=== PATIENT | female | born 1990 | race Caucasian/White ===

== ENCOUNTER 2017-04-06 14:35 | Inpatient (IN) | payer OTHER ==
[2017-04-06 15:39] VITALS: BMI 25.5
[2017-04-06 16:46] LABS: BASOPHIL 0.2 % (0-2.0); EOSINOPHIL 0.5 % (0-4.5); MCH 29.5 pg (25.7-33.7); MCHC 33.3 g/dl (32.0-36.0); MEAN CELL VOLUME 88.6 fl (80-96); NEUTROPHILS 69.4 % (42.8-82.8); PLATELET COUNT 208 K/MM3 (134-434); RDW 13.9 % (11.6-15.6); WHITE BLOOD COUNT 9.6 K/mm3 (4.0-10.0)
[2017-04-06 17:21] LABS: ANION GAP 7 (8-16); CALCIUM 8.8 mg/dL (8.5-10.1); CO2 26 mmol/L (21-32); CREATININE 0.6 mg/dL (0.55-1.02); GLUCOSE,RANDOM 86 mg/dL (74-106)
[2017-04-06 18:12] LABS: INR 0.87 (0.82-1.09); PROTHROMBIN TIME (PATIENT) 9.5 SEC (9.98-11.88)
[2017-04-06 18:15] LABS: ACTIVATED PTT 30.8 SECONDS (26.9-34.4)
--- NOTE | 2017-04-06 18:23 | HP ---
Past Medical History - Primary Care Physician PCP:: Aaron Alas - Admission Chief Complaint: 38.5 weeks, labor History of Present Illness: 27 yo f edc by sono 04/15/17 c/o contraction, vaginal spotting, , cx 3 cm , 80 vx -1 mi, fhr cat 1 , contraction q 3 min History Source: Patient Limitations to Obtaining History: No Limitations - Past Medical History ...: 1 ...LMP: 07/09/16 ... Weeks Gestation by Dates: 38.5 ...EDC by Dates: 04/15/17 ...EDC by Sono: 04/15/17 - Past Surgical History Hx Myomectomy: No Hx Transabdominal Cerclage: No - Smoking History Smoking history: Never smoked Have you smoked in the past 12 months: No - Alcohol/Substance Use Hx Alcohol Use: No - Social History Usual Living Arrangement: Yes: With Spouse History of Recent Travel: Yes Home Medications - Allergies Allergies/Adverse Reactions: Allergies Allergy/AdvReac Type Severity Reaction Status Date / Time No Known Allergies Allergy Verified 04/06/17 16:45 - Home Medications Home Medications: Ambulatory Orders Tablet 1 tab PO DAILY 04/06/17 Review of Systems - Review of Systems Constitutional: reports: No Symptoms Eyes: reports: No Symptoms HENT: reports: No Symptoms Neck: reports: No Symptoms Cardiovascular: reports: No Symptoms Respiratory: reports: No Symptoms Gastrointestinal: reports: No Symptoms Genitourinary: reports: No Symptoms Breasts: reports: No Symptoms Reported Musculoskeletal: reports: No Symptoms Integumentary: reports: No Symptoms Neurological: reports: No Symptoms Endocrine: reports: No Symptoms Hematology/Lymphatic: reports: No Symptoms Psychiatric: reports: No Symptoms Physical Exam - Maternity Vital Signs: Vital Signs Temperature 97.6 F 04/06/17 18:00 Pulse Rate 69 04/06/17 18:00 Respiratory Rate 20 04/06/17 18:00 Blood Pressure 115/66 04/06/17 18:00 O2 Sat by Pulse Oximetry (%) Constitutional: Yes: Well Nourished, No Distress, Calm Eyes: Yes: WNL, Conjunctiva Clear, EOM Intact HENT: Yes: WNL, Atraumatic, Normocephalic Neck: Yes: WNL, Supple, Trachea Midline Cardiovascular: Yes: WNL, Regular Rate and Rhythm Breast(s): Yes: WNL - Abdominal Exam/OB Fundal Height: 40 Number of Fetuses: Single Presentation: Vertex Contractions: Yes Regularity: Regular Intensity: Mod/Strong Monitor Mode: External Heart Rate Location: [facility] Category: I Accelerations: Uniform Decelerations: None - Vaginal Exam/OB Vaginal Bleediing: No Speculum Exam: No Dilatation (cm): 3 cm Effacement (%): 80 Amniotic Membrane Status: Intact Nitrazine Test: Negative Presentation: Vertex/Position Station: -1 - Physical Exam Musculoskeletal: Yes: WNL Extremities: Yes: WNL Edema: Yes Edema: LLE: Trace, RLE: Trace Deep Tendon Reflex Grade: Normal +2 Psychiatric: Yes: WNL - Labs Lab Results: CBC, BMP 04/06/17 16:00 04/06/17 16:00 Hemorrhage Risk Assessment - Risk Factors Medium Risk Factors: Yes: None High Risk Factors: Yes: None Risk Score: 0 Risk Level: Low Risk Problem List - Problems (1) 38 weeks gestation of Code(s): Z3A.38 - 38 WEEKS GESTATION OF (2) Labor established Code(s): QVH9521 - Assessment/Plan admit, fhm, ,
[2017-04-06] MEDS ORDERED: DEXTROSE 5%-LACTATED RINGERS 1,000 ML IV SCH (19:30)
[2017-04-06] MEDS ORDERED: PROMETHAZINE HCL 25 MG/1 ML VIAL IVPUSH ONE (21:12)
[2017-04-06] MEDS ORDERED: BUTORPHANOL TARTRATE 1 MG/ML VIAL IVPUSH PRN (21:12)
--- NOTE | 2017-04-06 21:12 | PN ---
Progress Note (short form) - Note Progress Note: cx 4 cm 80 vx 0 mi, fhr cat 1, contraction q 3 min irregular , arom clear Problem List - Problems (1) 38 weeks gestation of Code(s): Z3A.38 - 38 WEEKS GESTATION OF (2) Labor established Code(s): [id number] -
--- NOTE | 2017-04-06 22:52 | PN ---
Progress Note (short form) - Note Progress Note: 913 pm cx 4 cm 80 vx -1 arom, clear, fhr cat 1, contraction q 3 to 4 min , moderate Problem List - Problems (1) 38 weeks gestation of Code(s): Z3A.38 - 38 WEEKS GESTATION OF (2) Labor established Code(s): [id number] -
--- NOTE | 2017-04-06 23:16 | PN ---
Progress Note (short form) - Note Progress Note: cx 7 cm 100 vx 0 mr, fhr cat 1, declined pain meds Problem List - Problems (1) 38 weeks gestation of Code(s): Z3A.38 - 38 WEEKS GESTATION OF (2) Labor established Code(s): CIS0547 -
[2017-04-07] MEDS ORDERED: BENZOCAINE 28 GM HEMORRHOIDAL OINTMENT TP PRN (01:32)
[2017-04-07] MEDS ORDERED: WITCH HAZEL 50% (TUCKS) 40 PAD/JAR PAD TP PRN (01:32)
[2017-04-07] MEDS ORDERED: METHYLERGONOVINE MALEATE 0.2 MG/1 ML AMP IM PRN (01:32)
[2017-04-07] MEDS ORDERED: oxyCODONE HCL 5 MG TABLET PO PRN (01:32)
[2017-04-07] MEDS ORDERED: BISACODYL 10 MG SUPP.RECT RC PRN (01:32)
[2017-04-07] MEDS ORDERED: BENZOCAINE 20% 57 GM BOTTLE TP PRN (01:32)
[2017-04-07] MEDS ORDERED: D5W-LR W/ 20 UNITS OXYTOCIN 1,000 ML IV SCH (01:45)
[2017-04-07 01:49] LABS: ARTERIAL BLOOD GAS BASE EXCESS -5.6 meq/l (-2-2); ARTERIAL BLOOD GAS HCO3 22.6 meq/L (22-26); ARTERIAL BLOOD GAS PO2 20.1 mmHg (80-100)
[2017-04-07 01:53] LABS: VENOUS BLOOD GAS HCO3 21.6 meq/L (19-25)
[2017-04-07 01:56] LABS: VENOUS PH 7.28 (7.32-7.42)
[2017-04-07 01:57] LABS: PT. ON O2? NO
[2017-04-07 01:58] LABS: ARTERIAL BLOOD GAS pH 7.23 (7.35-7.45)
[2017-04-07] MEDS: IBUPROFEN 600 MG TABLET (FP) PO PRN ×3 (02:55→21:53)
[2017-04-07] MEDS: ACETAMINOPHEN 325 MG TABLET (FP) PO PRN ×2 (02:55→16:03)
[2017-04-07] MEDS: PRENATAL VITAMINS W/ FOLIC ACID TABLET (FP) PO SCH (09:42)
[2017-04-07] MEDS: FERROUS SO4 325 MG TABLET (FP) PO SCH ×2 (09:42→21:53)
[2017-04-07] MEDS ORDERED: DIPHTH,PERTUSS(ACELL),TET 0.5 ML DISP.SYRIN IM ONE (10:00)
[2017-04-08 07:42] LABS: BASOPHIL 0.4 % (0-2.0); MCH 30.4 pg (25.7-33.7); MCHC 34.4 g/dl (32.0-36.0); MEAN CELL VOLUME 88.4 fl (80-96); NEUTROPHILS 73.4 % (42.8-82.8); PLATELET COUNT 153 K/MM3 (134-434); RDW 14.2 % (11.6-15.6); WHITE BLOOD COUNT 9.6 K/mm3 (4.0-10.0)
--- NOTE | 2017-04-08 09:29 | DS ---
Physical Exam-FUR FEEDER Vital Signs: Vital Signs Temperature 98.4 F 04/07/17 21:00 Pulse Rate 79 04/07/17 21:00 Respiratory Rate 18 04/07/17 21:00 Blood Pressure 107/52 04/07/17 21:00 O2 Sat by Pulse Oximetry (%) 100 04/07/17 03:00 Constitutional: Yes: Well Nourished, No Distress, Calm Eyes: Yes: WNL, Conjunctiva Clear, EOM Intact HENT: Yes: WNL, Atraumatic, Normocephalic Neck: Yes: WNL, Supple, Trachea Midline Cardiovascular: Yes: WNL, Regular Rate and Rhythm Respiratory: Yes: WNL, Regular, CTA Bilaterally Gastrointestinal: Yes: WNL ...Rectal Exam: Yes: WNL Renal/: Yes: WNL ....Post : Yes: Uterus firm, Uterus non-tender, Slight lochia rubra Breast(s): Yes: WNL Musculoskeletal: Yes: WNL Extremities: Yes: WNL Edema: No Integumentary: Yes: WNL Neurological: Yes: WNL, Alert, Oriented ...Motor Strength: WNL Psychiatric: Yes: WNL, Alert, Oriented Labs: CBC, BMP 04/08/17 07:20 04/06/17 16:00 Delivery - Delivery Vaginal Delivery: Spontaneous (no complication) Type of Anesthesia: Local Episiotomy/Laceration: Periurethral Extnsion/lac, 1st degree EBL (cc): 300 Delivery, Single - Stages of Labor Date 1st Stage Initiatied: 04/06/17 Time 1st Stage Initiated: 14:50 Date 2nd Stage Initiated: 04/07/17 Time 2nd Stage Initiated: 00:15 Date of Delivery: 04/07/17 Time of Delivery: 01:15 Time Placenta Delivered: 01:25 Placenta: Yes: Spontaneous (no complication) - Condition of Registered Nurse Supervisor/Energy Efficiency Engineer Present: No Gender: Female Weight: 6 lb 2 oz Position: Left, OA Total Hours ROM (Hrs/Mins): 4h14m - 1 Minute Total Score: 9 5 Minutes Total Score: 9 - [place] Feeding Plan Initial Plan: Elected not to breastfeed exclusively throughout hospitalization Discharge Summary Reason For Visit: LABOR Current Active Problems 38 weeks gestation of (Acute) Labor established (Acute) Procedures: Principal: , Hospital Course: non complicated Condition: Good - Instructions Diet, Activity, Other Instructions: regular diet, follow up office 4 weeks Disposition: HOME - Home Medications Comprehensive Discharge Medication List: Ambulatory Orders Tablet 1 tab PO DAILY 04/06/17
[2017-04-08] MEDS: FERROUS SO4 325 MG TABLET (FP) PO SCH ×2 (10:13→22:02)
[2017-04-08] MEDS: PRENATAL VITAMINS W/ FOLIC ACID TABLET (FP) PO SCH (10:13)
[2017-04-08] MEDS: IBUPROFEN 600 MG TABLET (FP) PO PRN (16:53)
[2017-04-08] MEDS: ACETAMINOPHEN 325 MG TABLET (FP) PO PRN (16:54)
[2017-04-08] MEDS ORDERED: SENNOSIDES/DOCUSATE COMBO (SENNA PLUS) TABLET (UD) PO PRN (22:00)
[2017-04-09 07:38] VITALS: BP 110/62; PULSE 77; TEMP 99.1
[2017-04-09] MEDS: PRENATAL VITAMINS W/ FOLIC ACID TABLET (FP) PO SCH (09:34)
[2017-04-09] MEDS: FERROUS SO4 325 MG TABLET (FP) PO SCH (09:34)
--- NOTE | 2017-04-09 10:06 | PN ---
Progress Note (short form) - Note Progress Note: ppd 2 no c/o CBC, BMP 04/08/17 07:20 04/06/17 16:00 Last Vital Signs Temp Pulse Resp BP Pulse Ox 99.1 F 77 20 110/62 100 04/09/17 07:20 04/09/17 07:20 04/09/17 07:20 04/09/17 07:20 04/07/17 03:00 abdomen soft, , uterus firm, lochia mild plan d/c home rtc 4 weeks Problem List - Problems (1) 38 weeks gestation of Code(s): Z3A.38 - 38 WEEKS GESTATION OF (2) Labor established Code(s): HHI4460 -
== END 2017-04-09 13:05 | disposition home or self-care (01) | DRG 560 ==
LOC: JDEL 14:35 → JLDR 15:00 → J3W 04-07 03:45
PROVIDERS: ADMIT Obstetrics & Gynecology; ATTEND Obstetrics & Gynecology
PROC: 10E0XZZ Delivery of Products of Conception, External Approach (ICD-10-PCS; principal; 2017-04-07)
PROC: 0HQ9XZZ Repair Perineum Skin, External Approach (ICD-10-PCS; 2017-04-07)
PROC: 0W8NXZZ Division of Female Perineum, External Approach (ICD-10-PCS; 2017-04-07)
DX: O70.0 First degree perineal laceration during delivery (principal); Z3A.38 38 weeks gestation of pregnancy; Z37.0 Single live birth
CPT/HCPCS: 36415; 36600; 59409; 80048; 82803; 85025; 85610; 85730; 86593; 86762; 86850; 86900; 86901; 90715

== ENCOUNTER 2019-09-23 13:38 | Emergency (ER) | payer OTHER ==
[2019-09-23] MEDS ORDERED: IBUPROFEN 600 MG TABLET (FP) PO ONE ×2 (13:46→14:05)
--- NOTE | 2019-09-23 13:46 | PDOC ---
Rapid Medical Evaluation Medical Evaluation: Allergies Allergy/AdvReac Type Severity Reaction Status Date / Time No Known Allergies Allergy Verified 04/06/17 16:45 09/23/19 13:45 CC: right ankle pain s/p fall on stairs PE: TTp over lateral malleolus. No bony deformity or crepitus present. NVI Orders: Xray, Motrin Patient will proceed to ED for further evaluation. Discharge Disposition - Diagnosis Acute right ankle pain - Referrals - Patient Instructions - Post Discharge Activity
[2019-09-23 13:47] VITALS: BP 132/80; PULSE 100; TEMP 98; BMI 20.5
--- NOTE | 2019-09-23 14:12 | PDOC ---
History of Present Illness - General Chief Complaint: Injury Stated Complaint: RT. FOOT PAIN/ FALL Time Seen by Provider: 09/23/19 13:47 History Source: Patient - History of Present Illness Occurred: reports: this afternoon Pain Location: reports: lower extremity Method of Injury: Yes: fall Past History - Past Medical History Allergies/Adverse Reactions: Allergies Allergy/AdvReac Type Severity Reaction Status Date / Time No Known Allergies Allergy Verified 09/23/19 13:47 Home Medications: Ambulatory Orders Tablet 1 tab PO DAILY 04/06/17 Ibuprofen [Motrin -] 600 mg PO QID #28 tablet 04/08/17 Asthma: No Cancer: No Cardiac Disorders: No COPD: No Diabetes: No HTN: No Seizures: No Thyroid Disease: No - Psycho Social/Smoking Cessation Hx Smoking History: Never smoked Have you smoked in the past 12 months: No Hx Alcohol Use: No Drug/Substance Use Hx: No Hx Substance Use Treatment: No Review of Systems - Review of Systems Musculoskeletal: Yes: Joint Pain, Joint Swelling *Physical Exam - Vital Signs Last Vital Signs Temp Pulse Resp BP Pulse Ox 98 F 100 H 18 132/80 99 09/23/19 13:45 09/23/19 13:45 09/23/19 13:45 09/23/19 13:45 09/23/19 13:45 - Physical Exam General Appearance: Yes: Appropriately Dressed, Mild Distress HEENT: positive: Normal Voice Neck: positive: Supple Respiratory/Chest: negative: Respiratory Distress Extremity: positive: Normal Inspection, Swelling (minimal swelling w/ ttp) Integumentary: positive: Dry, Warm Neurologic: positive: Fully Oriented, Alert, Normal Mood/Affect Medical Decision Making - Medical Decision Making 09/23/19 14:11 29-year-old female with R ankle pain s/p fall down steps today while carrying her child. Denies any other injuries. Able to bear weight. see exam M/l ankle sprain XR neg MARY ANNE placed and crutches given Dc w/ supportive tx PMD f/u as needed Discharge - Discharge Information Problems reviewed: Yes Clinical Impression/Diagnosis: Ankle sprain Qualifiers: Encounter type: initial encounter Involved ligament of ankle: unspecified ligament Laterality: right Qualified Code(s): S93.401A - Sprain of unspecified ligament of right ankle, initial encounter Condition: Good Disposition: HOME - Follow up/Referral - Patient Discharge Instructions Patient Printed Discharge Instructions: DI for Ankle Sprain Additional Instructions: Radiografa negativa para fractura sreekanth de hielo y elevar en casa [place] motrin para el dolor segn sea necesario hasta que el esguince sane Siga con slade PMD si el dolor persiste despus de 2 semanas. Print Language: BANGLADESHI - Post Discharge Activity
== END 2019-09-23 14:33 | disposition home or self-care (01) ==
LOC: JERFT 13:38
DX: S93.401A Sprain of unspecified ligament of right ankle, initial encounter (principal); W10.8XXA Fall (on) (from) other stairs and steps, initial encounter; Y93.89 Activity, other specified; Y92.038 Other place in apartment as the place of occurrence of the external cause; Y99.8 Other external cause status
CPT/HCPCS: 73610-TC-RT-FY; 73630-TC-RT-FY; 99282-25

== ENCOUNTER 2022-03-10 07:32 | Inpatient (IN) | payer OTHER ==
[2022-03-10] MEDS ORDERED: BUTORPHANOL TARTRATE 1 MG/ML VIAL IVPUSH ONE (20:07)
[2022-03-10] MEDS ORDERED: PROMETHAZINE HCL 25 MG/1 ML VIAL IVPUSH ONE (20:07)
[2022-03-10] MEDS ORDERED: DEXTROSE 5%-LACTATED RINGERS 1,000 ML IV SCH (20:15)
[2022-03-10] MEDS ORDERED: OXYTOCIN 30 UNITS in 0.9% NS 30 UNIT/500 ML INFUS.BAG IVPB SCH (20:15)
[2022-03-10 22:18] VITALS: BMI 24.2
[2022-03-10 22:22] LABS: BASO % 0.2 % (0-2.0); EOS % 0.5 % (0-4.5); HEMATOCRIT 34.8 % (32.4-45.2); HEMOGLOBIN 11.8 GM/dL (10.7-15.3); LYMPH % 17.9 % (8-40); MCH 28.9 pg (25.7-33.7); MEAN PLT VOLUME 9.8 fl (7.5-11.1); MONO % 6.9 % (3.8-10.2); NEUT % 74.5 % (42.8-82.8); PLATELET COUNT 208 10^3/uL (134-434); RBC 4.09 M/mm3 (3.60-5.2); RDW 14.2 % (11.6-15.6)
[2022-03-10 22:31] LABS: INR 0.93 (0.83-1.09); PROTHROMBIN TIME (PATIENT) 10.7 SEC (9.7-13.0)
[2022-03-10 22:33] LABS: ACTIVATED PTT 31.2 SECONDS (25.2-36.5)
[2022-03-10 22:39] LABS: CALCIUM 8.2 mg/dL (8.5-10.1)
[2022-03-10 22:40] LABS: BLOOD UREA NITROGEN 9.5 mg/dL (7-18)
[2022-03-10 22:43] LABS: CREATININE 0.5 mg/dL (0.55-1.3)
[2022-03-11 02:18] LABS: COCAINE, UR NEGATIVE (NEGATIVE); METHADONE, UR NEGATIVE (NEGATIVE); URINE AMPHETAMINES NEGATIVE (NEGATIVE)
[2022-03-11 02:19] LABS: PHENCYCLIDINE,URINE NEGATIVE (NEGATIVE); URINE BARBITURATES NEGATIVE (NEGATIVE)
[2022-03-11 02:31] LABS: OPIATES, URI NEGATIVE (NEGATIVE); URINE BENZODIAZEPINES NEGATIVE (NEGATIVE)
[2022-03-11] MEDS ORDERED: OXYTOCIN 30 UNITS in 0.9% NS 30 UNIT/500 ML INFUS.BAG IVPB ONE (02:34)
[2022-03-11] MEDS ORDERED: OXYTOCIN 20 UNITS in 0.9% NS 20 UNIT/1,000 ML INFUS.BAG IV ONE ×2 (02:34→09:32)
[2022-03-11] MEDS ORDERED: morphine SULFATE/PF 1 MG/2 ML (2cc Syringe - QUVA) ONE (08:17)
[2022-03-11] MEDS ORDERED: PHENYLEPHRINE HCL 10 MG/1 ML SINGLE DOSE VIAL ONE (08:18)
[2022-03-11] MEDS ORDERED: SODIUM CHLORIDE 0.9% P/F 10 ML VIAL IJ ONE (08:19)
[2022-03-11] MEDS ORDERED: ePHEDrine SULFATE 50 MG/1 ML AMPULE ONE (08:19)
[2022-03-11] MEDS ORDERED: ceFAZolin SODIUM 1 GM VIAL ONE (08:20)
[2022-03-11] MEDS ORDERED: ONDANSETRON 4 MG/2 ML VIAL ONE (08:21)
[2022-03-11] MEDS ORDERED: CITRIC ACID/SODIUM CITRATE 30 ML UNIT-DOSE CUP PO ONE (08:26)
[2022-03-11] MEDS ORDERED: ELECTROLYTE-148 SOLN 1,000 ML IV SCH (08:30)
[2022-03-11] MEDS: OXYTOCIN 20 UNITS in 0.9% NS 20 UNIT/1,000 ML INFUS.BAG IV SCH ×2 (09:35→17:53)
[2022-03-11] MEDS ORDERED: ACETAMINOPHEN 325 MG TABLET (FP) PO PRN ×2 (09:39)
[2022-03-11] MEDS ORDERED: ONDANSETRON 4 MG/2 ML VIAL IVPUSH PRN (09:39)
[2022-03-11] MEDS ORDERED: METHYLERGONOVINE MALEATE 0.2 MG/1 ML AMP IM PRN (09:39)
[2022-03-11] MEDS ORDERED: ACETAMINOPHEN 1000 MG/100 ML BAG IVPB PRN (09:41)
[2022-03-11] MEDS ORDERED: METHYLERGONOVINE MALEATE 0.2 MG/1 ML AMP IM ONE (09:42)
[2022-03-11] MEDS ORDERED: KETOROLAC TROMETHAMINE 30 MG/1 ML VIAL ONE (10:06)
[2022-03-11] MEDS ORDERED: OXYTOCIN 10 UNITS/ML VIAL ONE (10:06)
[2022-03-11] MEDS ORDERED: DEXAMETHASONE SOD PHOSPHATE 4 MG/1 ML VIAL ONE (10:06)
[2022-03-11] MEDS ORDERED: morphine SULFATE/PF 1 MG/2 ML (2cc Syringe - QUVA) EP ONE (10:30)
[2022-03-11 10:55] LABS: CORD HCO3 23.7 mmHg (20-29); CORD PCO2 56.7 mmHg (30-78); CORD pH 7.239 (7.14-7.44)
[2022-03-11 10:57] LABS: CORD BASE EXCESS -4.4 mmol/L (0-2); CORD HCO3 22.9 mmHg (20-29); CORD PCO2 50.7 mmHg (30-78); CORD pH 7.273 (7.14-7.44)
[2022-03-11] MEDS ORDERED: IBUPROFEN 800 MG/8 ML IJ IVPB PRN (11:08)
[2022-03-11] MEDS ORDERED: ceFAZolin 2 GRAM PREMIX BAG IVPB SCH (15:00)
[2022-03-11] MEDS: CEFAZOLIN SODIUM 2 GM in DEXTROSE 5%-WATER 100 ML IVPB SCH ×2 (16:17→21:43)
[2022-03-11] MEDS ORDERED: oxyCODONE HCL 5 MG TABLET PO PRN ×2 (21:40)
[2022-03-12] MEDS: CEFAZOLIN SODIUM 2 GM in DEXTROSE 5%-WATER 100 ML IVPB SCH ×2 (03:33→10:46)
[2022-03-12] MEDS: SIMETHICONE 80 MG TAB.CHEW (FP) PO PRN ×3 (04:03→20:37)
[2022-03-12] MEDS ORDERED: BISACODYL 10 MG SUPP.RECT RC PRN (09:40)
[2022-03-12] MEDS: ENOXAPARIN NA (PORCINE) 40 MG/0.4 ML DISP.SYRIN SQ SCH (09:59)
[2022-03-12 10:16] LABS: BASO % 0.3 % (0-2.0); EOS % 0.4 % (0-4.5); HEMOGLOBIN 8.8 GM/dL (10.7-15.3); LYMPH % 10.7 % (8-40); MCHC 33.6 g/dl (32.0-36.0); MEAN CELL VOLUME 86.2 fl (80-96); MEAN PLT VOLUME 9.6 fl (7.5-11.1); MONO % 6.6 % (3.8-10.2); PLATELET COUNT 162 10^3/uL (134-434); RBC 3.02 M/mm3 (3.60-5.2); RDW 14.1 % (11.6-15.6); WHITE BLOOD COUNT 12.5 K/mm3 (4.0-10.0)
[2022-03-12] MEDS: OXYTOCIN 20 UNITS in 0.9% NS 20 UNIT/1,000 ML INFUS.BAG IV SCH (16:01)
[2022-03-12] MEDS: IBUPROFEN 600 MG TABLET (FP) PO PRN ×2 (16:11→20:36)
[2022-03-12] MEDS: FERROUS SO4 325 MG TABLET (FP) PO SCH (17:31)
[2022-03-13] MEDS: IBUPROFEN 600 MG TABLET (FP) PO PRN ×3 (06:02→20:25)
[2022-03-13] MEDS: FERROUS SO4 325 MG TABLET (FP) PO SCH ×2 (09:00→18:05)
[2022-03-13] MEDS: PRENATAL VITAMINS W/ FOLIC ACID TABLET (FP) PO SCH (09:35)
[2022-03-13] MEDS: ENOXAPARIN NA (PORCINE) 40 MG/0.4 ML DISP.SYRIN SQ SCH (09:37)
[2022-03-13] MEDS: SIMETHICONE 80 MG TAB.CHEW (FP) PO PRN ×2 (16:04→20:25)
[2022-03-14] MEDS: IBUPROFEN 600 MG TABLET (FP) PO PRN (05:25)
[2022-03-14 08:44] LABS: HEMOGLOBIN 8.4 GM/dL (10.7-15.3); MCH 28.9 pg (25.7-33.7); MCHC 33.7 g/dl (32.0-36.0); MEAN CELL VOLUME 85.9 fl (80-96); MEAN PLT VOLUME 9.1 fl (7.5-11.1); PLATELET COUNT 211 10^3/uL (134-434); RBC 2.92 M/mm3 (3.60-5.2); RDW 14.5 % (11.6-15.6); WHITE BLOOD COUNT 8.3 K/mm3 (4.0-10.0)
[2022-03-14] MEDS: PRENATAL VITAMINS W/ FOLIC ACID TABLET (FP) PO SCH (09:15)
[2022-03-14] MEDS: ENOXAPARIN NA (PORCINE) 40 MG/0.4 ML DISP.SYRIN SQ SCH (09:16)
[2022-03-14] MEDS: FERROUS SO4 325 MG TABLET (FP) PO SCH (09:16)
[2022-03-14 10:23] LABS: ANISOCYTOSIS 0; HELMET CELLS 0; HOWELL-JOLLY BODIES 0; MACROCYTOSIS 0; OVALOCYTE 0; ROULEAU 0; SICKELED CELLS 0; TARGET CELLS 0; TEAR DROP CELLS 0; TOXIC GRANULATION 0
[2022-03-14 11:50] VITALS: BP 116/68; PULSE 85; TEMP 97.6
== END 2022-03-14 13:42 | disposition home or self-care (01) | DRG 540 ==
LOC: UNDOADMIN 07:32 → JLDR 07:32 → J3W 03-11 10:50
PROVIDERS: ADMIT Obstetrics & Gynecology; ATTEND Obstetrics & Gynecology
PROC: 10D00Z1 Extraction of Products of Conception, Low, Open Approach (ICD-10-PCS; principal; 2022-03-11)
DX: O62.0 Primary inadequate contractions (principal); O76 Abnormality in fetal heart rate and rhythm complicating labor and delivery; Z3A.39 39 weeks gestation of pregnancy; Z37.0 Single live birth
CPT/HCPCS: 36415; 36600; 80048; 80307; 82803; 85025; 85610; 85730; 86780; 86850; 86900; 86901; 88307-TC; C9803-CS; U0003; U0005

== ENCOUNTER 2023-03-10 13:28 | Emergency (ER) | payer OTHER ==
[2023-03-10 13:40] VITALS: BP 149/79; RESP 18; BMI 19.2
[2023-03-10] MEDS ORDERED: ACETAMINOPHEN 500 MG TABLET (FP) PO ONE (13:46)
[2023-03-10] MEDS ORDERED: IBUPROFEN 600 MG TABLET (FP) PO ONE ×2 (13:46)
[2023-03-10] MEDS ORDERED: ACETAMINOPHEN 500 MG TABLET (FP) ONE (13:47)
[2023-03-10 15:21] VITALS: PULSE 105; TEMP 99.2
[2023-03-10 15:21] LABS: THROAT:GRP A STREP DETECTED (NOTDETECTED)
== END 2023-03-10 15:55 | disposition home or self-care (01) ==
LOC: JER 13:28 → JERFT 13:28
DX: R50.9 Fever, unspecified (principal); M79.10 Myalgia, unspecified site; R07.0 Pain in throat; R09.81 Nasal congestion; R09.82 Postnasal drip; R09.89 Other specified symptoms and signs involving the circulatory and respiratory systems; J02.0 Streptococcal pharyngitis; Z20.822 Contact with and (suspected) exposure to COVID-19
CPT/HCPCS: 0241U-QW; 87651; 99283-25